=== PATIENT | male | born 1965 | race Caucasian/White ===

== ENCOUNTER 2020-09-12 02:39 | Emergency (ER) | payer MEDICAID ==
[~2020-09-12] VITALS: Ht 193 cm; Wt 102.3 kg
[~2020-09-12 02:39] MED LIST: METH-360 PO; NO HOME MEDS
[2020-09-12 02:43] VITALS: BP 127/76
[2020-09-12] MEDS ORDERED: diphenhydrAMINE 25mg capsule PO ONE (05:20)
== END 2020-09-12 05:29 | disposition home or self-care (01) ==
LOC: ER 02:40
DX: S80.861A Insect bite (nonvenomous), right lower leg, initial encounter (principal); F17.200 Nicotine dependence, unspecified, uncomplicated; F12.90 Cannabis use, unspecified, uncomplicated; F15.90 Other stimulant use, unspecified, uncomplicated; Z86.14 Personal history of Methicillin resistant Staphylococcus aureus infection; Z56.0 Unemployment, unspecified; Z79.899 Other long term (current) drug therapy; W57.XXXA Bitten or stung by nonvenomous insect and other nonvenomous arthropods, initial encounter; Y93.89 Activity, other specified; Y92.89 Other specified places as the place of occurrence of the external cause; Y99.8 Other external cause status
CPT/HCPCS: 99284; Q0163

== ENCOUNTER → 2023-08-31 | Outpatient (CLI) | payer MEDICAID | END | disposition home or self-care (01) | LOC: RAD 14:18 | PROVIDERS: ATTEND Family Medicine | DX: Z12.2 Encounter for screening for malignant neoplasm of respiratory organs (principal); R91.1 Solitary pulmonary nodule; J43.2 Centrilobular emphysema; Z72.0 Tobacco use; J98.11 Atelectasis; I25.10 Atherosclerotic heart disease of native coronary artery without angina pectoris; M47.816 Spondylosis without myelopathy or radiculopathy, lumbar region | CPT/HCPCS: 71271 ==